=== PATIENT | male | born 1970 | race Caucasian/White ===

== ENCOUNTER 2018-04-19 02:30 | Emergency (ER) | payer MEDICAID ==
[~2018-04-19] VITALS: Ht 177.8 cm; Wt 72.6 kg
[~2018-04-19 02:30] MED LIST: CITA40TA11; OMEP40CA37
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
--- NOTE | 2018-04-19 02:31 | NUR ---
ER MD SANCHEZ AT BEDSIDE FOR EVAL
--- NOTE | 2018-04-19 03:15 | NUR ---
PT OFF TO CT
--- NOTE | 2018-04-19 03:21 | NUR ---
PT BACK FROM CT
[2018-04-19] MEDS ORDERED: TDAP [DIPH/PERTUSSIS/TET] 0.5 ML VIAL IM ONE ×2 (03:38→04:00)
--- NOTE | 2018-04-19 04:39 | NUR ---
CALLED [facility] REGARDING FACIAL BONES CT RESULT. THEY WILL F/U
[2018-04-19 05:26] VITALS: BP 149/91
== END 2018-04-19 05:27 | disposition home or self-care (01) ==
LOC: ER 02:31
DX: S01.411A Laceration without foreign body of right cheek and temporomandibular area, initial encounter (principal); F32.9 Major depressive disorder, single episode, unspecified; F17.200 Nicotine dependence, unspecified, uncomplicated; Y04.0XXA Assault by unarmed brawl or fight, initial encounter; Y93.89 Activity, other specified; Y92.89 Other specified places as the place of occurrence of the external cause; Y99.8 Other external cause status
CPT/HCPCS: 70450; 70486; 72125; 90471; 90715; 99284; A4606; A6402 ×2; Z7610